=== PATIENT | female | born 1995 | race Caucasian/White ===

== ENCOUNTER 2016-06-26 17:12 | Emergency (ER) | payer BC ==
[2016-06-26] MEDS ORDERED: methylPREDNISolone 125 MG* 2 ML VIAL ONE (19:58)
[2016-06-26] MEDS ORDERED: methylPREDNISolone 125 MG* 2 ML VIAL IM ONE (20:01)
[2016-06-26] MEDS ORDERED: methylPREDNISolone 125 MG* 2 ML VIAL IV ONE (20:18)
[2016-06-26] MEDS ORDERED: diPHENhydraMINE IV* 50 MG/ML 1 ml VIAL (BENADRYL) IV ONE (20:38)
[2016-06-26] MEDS ORDERED: ALPRAZolam TAB* 0.25 MG PO ONE (20:38)
[2016-06-26] MEDS ORDERED: diPHENhydraMINE PO* 25 MG ONE (20:39)
[2016-06-26] MEDS ORDERED: diPHENhydraMINE PO* 25 MG PO ONE (20:41)
[2016-06-26] MEDS ORDERED: Famotidine TAB* 20 MG ONE (21:40)
[2016-06-26] MEDS ORDERED: Famotidine TAB* 20 MG PO ONE (21:42)
[2016-06-26 22:52] VITALS: BP 130/87
--- NOTE | 2016-06-27 03:28 | ED ---
Norma Gardner Claudia, scribed for Demetri Holland on 06/26/16 at 6 . Allergic Reaction/Systemic - HPI Summary HPI Summary: 21 year old female presents to the ED with allergic reaction. Pt notes PMHx of tree nut allergy. Pt notes Sx began at 4:30 todya and at 4:40 she took 2 Benadryl tablets and 1 Zyrtec. Pt notes she has difficulty breathing which has begun to resolve upon arrival to ED. Pt thinks the Benadryl somewhat alleviated her Sx. - History of Current Complaint Chief Complaint: EDAllergicReaction Time Seen by Provider: 06/26/16 19:48 Hx Obtained From: Patient Hx Last Menstrual Period: 08/10/15 Onset/Duration: Sudden Onset, Started hours ago Timing: Constant Pain Intensity: 0 Pain Scale Used: 0-10 Numeric Character: Hives Associated Signs And Symptoms: Positive: Abdominal Pain, Difficulty Breathing. Negative: Chest Pain, Cough Wheezing - Related Hx Possible Reaction To: Other: - tree nuts - Allergies/Home Medications Allergies/Adverse Reactions: Allergies Allergy/AdvReac Type Severity Reaction Status Date / Time Tree Nuts Allergy Difficulty Verified 09/09/15 18:59 Breathing PMH/Surg Hx/FS Hx/Imm Hx Previously Healthy: Yes Respiratory History: Reports: Hx Asthma, Hx Seasonal Allergies Denies: Hx Chronic Bronchitis, Hx Chronic Obstructive Pulmonary Disease (COPD ), Hx Cystic Fibrosis, Hx Lung Cancer, Hx Pleural Effusion, Hx Pneumonia, Hx Pulmonary Edema, Hx Pulmonary Embolism, Hx Sleep Apnea, Other Respiratory Problems/Disorders Musculoskeletal History: Reports: Hx Back Problems - muscle spasms, Hx Bursitis - left hip Denies: Hx Arthritis, Hx Congenital Bone Abnormalities, Hx Fibromyalgia, Hx Gout, Hx Orthopedic Injury, Hx Osteoporosis, Hx Scoliosis, Hx Tendonitis, Other Musculoskeletal History Sensory History: Reports: Hx Contacts or Glasses Denies: Hx Cataracts, Hx Eye Injury, Hx Eye Prosthesis, Hx Glaucoma, Hx Legally Blind, Hx Macular Degeneration, Hx Vision Problem, Hx Deafness, Hx Hearing Aid, Hx Hearing Problem, Other Sensory Impairments Opthamlomology History: Reports: Hx Contacts or Glasses Denies: Hx Cataracts, Hx Eye Injury, Hx Eye Prosthesis, Hx Glaucoma, Hx Legally Blind, Hx Macular Degeneration, Hx Vision Problem, Other Sensory Impairments Psychiatric History: Reports: Hx Anxiety, Hx Depression, Hx Community Mental Health Tx Denies: Hx Attention Deficit Hyperactivity Disorder, Hx Eating Disorder, Hx Panic Disorder, Hx Post Traumatic Stress Disorder, Hx Inpatient Treatment, Hx Schizophrenia, Hx Bipolar Disorder, Hx Suicide Attempt, Hx of Violent Episodes Against Others, Hx Substance Abuse, Other Psychiatric Issues/Disorders - Surgical History Surgery Procedure, Year, and Place: adenoidectomy - Immunization History Date of Tetanus Vaccine: in last 5 years Infectious Disease History: No Infectious Disease History: Denies: Hx Clostridium Difficile, Hx Hepatitis, Hx Human Immunodeficiency Virus (HIV), Hx of Known/Suspected MRSA, Hx Shingles, Hx Tuberculosis, Hx Known/ Suspected VRE, Hx Known/Suspected VRSA, History Other Infectious Disease, Traveled Outside the [place] in Last 30 Days - Family History Known Family History: Positive: None Negative: Hypertension, Diabetes Family History: R & n/C - Social History Occupation: Employed Full-time Lives: With Family Alcohol Use: Occasionally Hx Substance Use: No Substance Use Type: Reports: None Hx Tobacco Use: No Smoking Status (MU): Never Smoked Tobacco Review of Systems Constitutional: Negative Eyes: Negative ENT: Negative Cardiovascular: Negative Negative: Chest Pain Positive: Other - difficulty breathing . Negative: Cough Positive: Abdominal Pain Genitourinary: Negative Musculoskeletal: Negative Positive: Rash Neurological: Negative Psychological: Normal All Other Systems Reviewed And Are Negative: Yes Physical Exam Triage Information Reviewed: Yes Vital Signs On Initial Exam: Initial Vitals Temp Pulse Resp BP Pulse Ox 98.6 F 111 20 134/87 100 06/26/16 17:14 06/26/16 17:14 06/26/16 17:14 06/26/16 17:14 06/26/16 17:14 Vital Signs Reviewed: Yes Appearance: Positive: Well-Appearing, No Pain Distress Skin: Positive: Warm, Skin Color Reflects Adequate Perfusion, Dry, Other - facial rash Head/Face: Positive: Normal Head/Face Inspection Eyes: Positive: EOMI, MANUEL ENT: Positive: Normal ENT inspection Neck: Positive: Supple, Nontender Respiratory/Lung Sounds: Positive: Clear to Auscultation, Breath Sounds Present Cardiovascular: Positive: RRR, Pulses are Symmetrical in both Upper and Lower Extremities Abdomen Description: Positive: Nontender, Soft Musculoskeletal: Positive: Normal, Strength/ROM Intact Neurological: Positive: Normal, Sensory/Motor Intact, Alert, Oriented to Person Place, Time Diagnostics - Vital Signs Vital Signs Temp Pulse Resp BP Pulse Ox 06/26/16 18:59 98.6 F 87 20 125/74 100 06/26/16 17:59 98.6 F 113 16 118/70 100 06/26/16 17:14 98.6 F 111 20 134/87 100 - Laboratory Lab Statement: Any lab studies that have been ordered have been reviewed, and results considered in the medical decision making process. Re-Evaluation - Re-Evaluation 1 Re-Evaluation Time: 20:47 Comment: pt has a new rash to her hands biltaerally and more benadryl is pescribed Allergic Reaction Course/Dx - Course Assessment/Plan: AFTER OBSERVATION THE PT IS AGREEABLE WITH D/C HOME AND F/O - Diagnoses Provider Diagnoses: Allergic reaction Discharge - Discharge Plan Condition: Stable Disposition: HOME Prescriptions: Methylprednisolone [Medrol Dosepak 4 MG*] 0 mg PO .SEE PEPE INSTRUCTION #1 tab Patient Education Materials: General Allergic Reaction (ED) [facility] - 3 Days The documentation as recorded by the Norma singleton Claudia accurately reflects the service I personally performed and the decisions made by , Demetri Holland.
== END 2016-06-26 22:47 | disposition home or self-care (01) ==
LOC: ED 17:12
DX: T78.40XA Allergy, unspecified, initial encounter (principal); R10.9 Unspecified abdominal pain; R06.02 Shortness of breath; R21 Rash and other nonspecific skin eruption; Z91.018 Allergy to other foods; X58.XXXA Exposure to other specified factors, initial encounter
CPT/HCPCS: 96374; 96375; 99283; A9270-GY; J2930

== ENCOUNTER 2016-07-19 16:20 | Emergency (ER) | payer BC ==
[2016-07-19 16:57] VITALS: BP 129/72
--- NOTE | 2016-07-19 17:23 | UC ---
Upper Extremity HPI - HPI Summary HPI Summary: Woke up with L wrist pain 5 days ago. Denies recent or remote injury (except for mild sprain 2 years ago). Pain worse with flex/extension, pain on radial side of wrist. - History of Current Complaint Chief Complaint: UCUpperExtremity Stated Complaint: WRIST INJURY Time Seen by Provider: 07/19/16 17:07 Hx Obtained From: Patient Hx Last Menstrual Period: 07/18/16 ?: No Onset/Duration: Gradual Onset, Lasting Days Severity Initially: Mild Severity Currently: Mild Character: Stiffness Aggravating Factor(s): Movement, Flexion, Extension Alleviating Factor(s): Nothing Related History: Dominant Hand Right - Allergies/Home Medications Allergies/Adverse Reactions: Allergies Allergy/AdvReac Type Severity Reaction Status Date / Time Tree Nuts Allergy Difficulty Verified 07/19/16 16:44 Breathing Home Medications: Home Medications Antihistamine 1 tab 07/19/16 [History] Drospirenone-Ethinyl Estradiol [Vestura 3-0.02 mg] 1 tab PO 07/19/16 [History] Gabapentin CAP(*) [Neurontin 300 CAP(*)] 600 mg PO BID 07/19/16 [History Confirmed 07/19/16] diPHENhydraMINE PO* [Benadryl PO 25 MG TAB*] 25 mg PO Q6H PRN 07/19/16 [History Confirmed 07/19/16] predniSONE TAB* [Deltasone TAB*] 6 tab DAILY 07/19/16 [History Confirmed ] PMH/Surg Hx/FS Hx/Imm Hx Respiratory History Of: Reports: Asthma Denies: COPD, Pneumonia, Pulmonary Embolism Psychological History Of: Reports: Anxiety, Depression Denies: Bipolar Disorder, Schizophrenia Cancer History Of: Denies: Lung Cancer - Surgical History Surgical History: Yes Surgery Procedure, Year, and Place: adenoidectomy - Family History Known Family History: Positive: None Negative: Hypertension, Diabetes Family History: R & n/C - Social History Occupation: Employed Full-time Alcohol Use: Rare Substance Use Type: None Smoking Status (MU): Never Smoked Tobacco - Immunization History Most Recent Influenza Vaccination: N/A Most Recent Tetanus Shot: N/A Most Recent Pneumonia Vaccination: N/A Review of Systems Constitutional: Negative Skin: Negative Eyes: Negative ENT: Negative Respiratory: Negative Cardiovascular: Negative Gastrointestinal: Negative Genitourinary: Negative Motor: Negative Neurovascular: Negative Musculoskeletal: Other: - L wrist pain Neurological: Negative Psychological: Negative All Other Systems Reviewed And Are Negative: Yes Physical Exam Triage Information Reviewed: Yes Appearance: Well-Appearing, No Pain Distress, Well-Nourished Vital Signs: Initial Vital Signs Temp 98.6 F 07/19/16 16:50 Pulse 70 07/19/16 16:50 Resp 18 07/19/16 16:50 BP 129/72 07/19/16 16:50 Pulse Ox 100 07/19/16 16:50 Vital Signs Reviewed: Yes Eye Exam: Normal Eyes: Positive: Conjunctiva Clear ENT Exam: Normal ENT: Positive: Normal ENT inspection, Hearing grossly normal, Pharynx normal, TMs normal Dental Exam: Normal Neck exam: Normal Neck: Positive: Supple, Nontender, No Lymphadenopathy Respiratory Exam: Normal Respiratory: Positive: Chest non-tender, Lungs clear, Normal breath sounds, No respiratory distress, No accessory muscle use Cardiovascular Exam: Normal Cardiovascular: Positive: RRR, No Murmur Musculoskeletal Exam: Other - no bony tenderness in L wrist, Dillon maneuver positive, pain also over dorsal aspect of radial wrist Musculoskeletal: Positive: Strength Intact, ROM Intact Neurological Exam: Normal Neurological: Positive: Alert Psychological Exam: Normal Skin Exam: Normal Upper Extremity Course/Dx - Differential Dx/Diagnosis Provider Diagnoses: L wrist pain. elevated blood pressure due to discomfort Discharge - Discharge Plan Condition: Stable Disposition: HOME Patient Education Materials: Arthralgia (ED) Referrals: Ernesto Coy MD [Medical Doctor] - Additional Instructions: As we discussed, your pain may be from a simple tendon inflammation -- this can resolve with rest alone, but if it doesn't you may benefit from a steroid injection.
== END 2016-07-19 17:30 | disposition home or self-care (01) ==
LOC: UCEAST 16:20
DX: M25.532 Pain in left wrist (principal); R03.0 Elevated blood-pressure reading, without diagnosis of hypertension
CPT/HCPCS: 99212; G0463

== ENCOUNTER 2017-01-17 21:14 | Emergency (ER) | payer BC ==
[2017-01-17] MEDS ORDERED: Famotidine TAB* 20 MG PO ONE (21:37)
--- NOTE | 2017-01-17 21:43 | ED ---
Allergic Reaction/Systemic - HPI Summary HPI Summary: Patient is an otherwise healthy 21 yo F who presents to the ED with allergic reaction. She was seen at and sent here. She is allergic to tree nuts, but does not think she had any. She was at at [facility] earlier and the symptoms developed 1 hour after eating. She arrives to the with diffuse hives and rapid heart rate. Denies difficulty breathing or swallowing. The providers immediately sent her to the ED for further evaluation after given her 50mg benadryl and 60mg prednisone PO. She has a epi pen which she carries always, but has not needed to use it. VS stable on arrival except for increased heart rate at 110. She has had this reaction several times, most recently seen in Jun this year. She was given benadryl, pepcid and prednisone all through IV with relief of symptoms. She denies SOB. After the Benadryl, she is now stating she feels very tired. - History of Current Complaint Chief Complaint: EDAllergicReaction Time Seen by Provider: 01/17/17 21:29 Hx Obtained From: Patient Hx Last Menstrual Period: 07/18/16 Onset/Duration: Sudden Onset Timing: Constant Severity Initially: Mild Severity Currently: Mild Pain Intensity: 0 Pain Scale Used: 0-10 Numeric Character: Swelling, Pruritus Alleviating Factor(s): Antihistamines, Nothing - steroids Associated Signs And Symptoms: Positive: Negative - Related Hx Possible Reaction To: Food - Allergies/Home Medications Allergies/Adverse Reactions: Allergies Allergy/AdvReac Type Severity Reaction Status Date / Time Tree Nuts Allergy Difficulty Verified 01/17/17 21:21 Breathing PMH/Surg Hx/FS Hx/Imm Hx Previously Healthy: Yes Respiratory History: Reports: Hx Asthma, Hx Seasonal Allergies Denies: Hx Chronic Bronchitis, Hx Chronic Obstructive Pulmonary Disease (COPD ), Hx Cystic Fibrosis, Hx Lung Cancer, Hx Pleural Effusion, Hx Pneumonia, Hx Pulmonary Edema, Hx Pulmonary Embolism, Hx Sleep Apnea, Other Respiratory Problems/Disorders Musculoskeletal History: Reports: Hx Back Problems - muscle spasms, Hx Bursitis - left hip Denies: Hx Arthritis, Hx Congenital Bone Abnormalities, Hx Fibromyalgia, Hx Gout, Hx Orthopedic Injury, Hx Osteoporosis, Hx Scoliosis, Hx Tendonitis, Other Musculoskeletal History Sensory History: Reports: Hx Contacts or Glasses Denies: Hx Cataracts, Hx Eye Injury, Hx Eye Prosthesis, Hx Glaucoma, Hx Legally Blind, Hx Macular Degeneration, Hx Vision Problem, Hx Deafness, Hx Hearing Aid, Hx Hearing Problem, Other Sensory Impairments Opthamlomology History: Reports: Hx Contacts or Glasses Denies: Hx Cataracts, Hx Eye Injury, Hx Eye Prosthesis, Hx Glaucoma, Hx Legally Blind, Hx Macular Degeneration, Hx Vision Problem, Other Sensory Impairments Psychiatric History: Reports: Hx Anxiety, Hx Depression, Hx Community Mental Health Tx Denies: Hx Attention Deficit Hyperactivity Disorder, Hx Eating Disorder, Hx Panic Disorder, Hx Post Traumatic Stress Disorder, Hx Inpatient Treatment, Hx Schizophrenia, Hx Bipolar Disorder, Hx Suicide Attempt, Hx of Violent Episodes Against Others, Hx Substance Abuse, Other Psychiatric Issues/Disorders - Surgical History Surgery Procedure, Year, and Place: adenoidectomy - Immunization History Date of Tetanus Vaccine: in last 5 years Hx Pertussis Vaccination: No Immunizations Up to Date: Unable to Obtain/Confirm Infectious Disease History: No Infectious Disease History: Denies: Hx Clostridium Difficile, Hx Hepatitis, Hx Human Immunodeficiency Virus (HIV), Hx of Known/Suspected MRSA, Hx Shingles, Hx Tuberculosis, Hx Known/ Suspected VRE, Hx Known/Suspected VRSA, History Other Infectious Disease, Traveled Outside the [place] in Last 30 Days - Family History Known Family History: Positive: None Negative: Hypertension, Diabetes Family History: R & n/C - Social History Occupation: Student Lives: Dormitory/Roommates Alcohol Use: Rare Hx Substance Use: No Substance Use Type: Reports: None Hx Tobacco Use: No Smoking Status (MU): Never Smoked Tobacco Review of Systems Constitutional: Negative Negative: Fever, Chills, Fatigue Eyes: Negative Negative: Blurred Vision, Drainage Negative: Sore Throat, Ear Ache, Nasal Discharge Positive: Palpitations - feeling increase HR and increased rate of breathing. Negative: Chest Pain Negative: Shortness Of Breath, Cough Positive: no symptoms reported, see HPI Positive: Other - diffuse hives Neurological: Negative All Other Systems Reviewed And Are Negative: Yes Physical Exam Triage Information Reviewed: Yes Vital Signs On Initial Exam: Initial Vitals Temp Pulse Resp BP Pulse Ox 99.5 F 110 20 117/69 100 01/17/17 21:15 01/17/17 21:15 01/17/17 21:15 01/17/17 21:15 01/17/17 21:15 Vital Signs Reviewed: Yes Appearance: Positive: Well-Appearing, Well-Nourished - no signs of distress Head/Face: Positive: Normal Head/Face Inspection Eyes: Positive: EOMI, MANUEL, Conjunctiva Clear ENT: Positive: Other - pharynx patent Neck: Positive: Supple, No Lymphadenopathy Respiratory/Lung Sounds: Positive: Clear to Auscultation, Breath Sounds Present , Other - lungs CTA and no decreased breath sounds or wheezing noted bilaterally Cardiovascular: Positive: RRR, Pulses are Symmetrical in both Upper and Lower Extremities Musculoskeletal: Positive: Strength/ROM Intact Neurological: Positive: Sensory/Motor Intact, Alert, Oriented to Person Place, Time, Speech Normal Psychiatric: Positive: Normal AVPU Assessment: Alert - Shayna Coma Scale Best Eye Response: 4 - Spontaneous Best Motor Response: 6 - Obeys Commands Best Verbal Response: 5 - Oriented Diagnostics - Vital Signs Vital Signs Temp Pulse Resp BP Pulse Ox 01/17/17 21:15 99.5 F 110 20 117/69 100 - Laboratory Lab Statement: Any lab studies that have been ordered have been reviewed, and results considered in the medical decision making process. Allergic Reaction Course/Dx - Course Course Of Treatment: Patient presents to ED with evaluation of possible allergic reaction. Prior to arrival, she is given benadryl 50mg, prednisone 60mg and transferred here by private car. She is given pepcid 40mg on arrival. VS stable except for elevated heart rate at 110. Otherwise stable. Denies SOB and pharynx patent. Denies difficulty swallowing. She endorses diffuse pruritis. Treatment options explained and patient agrees to be observed. HR continues to be elevated and IV placed with 1L fluids given. HR prior to discharge 98. Patient feels improved and is ready to be discharged. On second exam, pharynx patent, breathing OK and taking PO well. Feels back to baseline. Hives have dissipated. Return precautions given. - Diagnoses Differential Diagnosis/HQI/PQRI: Positive: Anaphylaxis, Local Allergic Reaction , Urticaria Provider Diagnoses: Allergic reaction Discharge - Discharge Plan Condition: Stable Disposition: HOME Patient Education Materials: General Allergic Reaction (ED) Referrals: [facility] [Primary Care Provider] - Additional Instructions: Follow up with PCP If you develop worsening respiratory symptoms, difficultly swallowing, return to the ED immediately You may take another dose of Benadryl at 2am.
[2017-01-17] MEDS ORDERED: NS 0.9% 1000 ML* 1,000 ML IV ONE (23:19)
[2017-01-18 00:33] VITALS: BP 111/77
== END 2017-01-18 00:54 | disposition home or self-care (01) ==
LOC: ED 21:14
DX: T78.40XA Allergy, unspecified, initial encounter (principal); X58.XXXA Exposure to other specified factors, initial encounter; F41.8 Other specified anxiety disorders; J45.909 Unspecified asthma, uncomplicated
CPT/HCPCS: 99283; A9270-GY

== ENCOUNTER 2017-04-13 20:17 | Emergency (ER) | payer OTHER, BC ==
[2017-04-13] MEDS ORDERED: diPHENhydraMINE LIQ* 12.5 MG/5 ML UDC PO ONE (22:11)
[2017-04-13] MEDS ORDERED: Ondansetron ODT TAB* 4 MG SL ONE (22:12)
[2017-04-13] MEDS ORDERED: Famotidine TAB* 20 MG PO ONE (22:12)
--- NOTE | 2017-04-13 22:22 | ED ---
Allergic Reaction/Systemic - HPI Summary HPI Summary: Patient presents to the ED with CC of allergic reaction. 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 Pt stated that its easier to swallow now that shes had the epi pen, also c/o throat pain. She has had these symptoms several times, but tonight is the first time she has used her epi pen. Currently on allergy medication, but denies other medications. Otherwise healthy. She states she felt jittery afterwards, but that has subsided. Epi pen administered 2 hours ago. - History of Current Complaint Chief Complaint: EDAllergicReaction Time Seen by Provider: 04/13/17 21:34 Hx Obtained From: Patient Hx Last Menstrual Period: 07/18/16 Onset/Duration: Sudden Onset Timing: Constant Severity Initially: Moderate Severity Currently: Moderate Pain Intensity: 6 Pain Scale Used: 0-10 Numeric Alleviating Factor(s): Epinephrine Associated Signs And Symptoms: Positive: Negative - Related Hx Possible Reaction To: Food - Allergies/Home Medications Allergies/Adverse Reactions: Allergies Allergy/AdvReac Type Severity Reaction Status Date / Time Tree Nuts Allergy Difficulty Verified 01/17/17 21:21 Breathing PMH/Surg Hx/FS Hx/Imm Hx Previously Healthy: Yes Respiratory History: Reports: Hx Asthma, Hx Seasonal Allergies Denies: Hx Chronic Bronchitis, Hx Chronic Obstructive Pulmonary Disease (COPD ), Hx Cystic Fibrosis, Hx Lung Cancer, Hx Pleural Effusion, Hx Pneumonia, Hx Pulmonary Edema, Hx Pulmonary Embolism, Hx Sleep Apnea, Other Respiratory Problems/Disorders Musculoskeletal History: Reports: Hx Back Problems - muscle spasms, Hx Bursitis - left hip Denies: Hx Arthritis, Hx Congenital Bone Abnormalities, Hx Fibromyalgia, Hx Gout, Hx Orthopedic Injury, Hx Osteoporosis, Hx Scoliosis, Hx Tendonitis, Other Musculoskeletal History Sensory History: Reports: Hx Contacts or Glasses Denies: Hx Cataracts, Hx Eye Injury, Hx Eye Prosthesis, Hx Glaucoma, Hx Legally Blind, Hx Macular Degeneration, Hx Vision Problem, Hx Deafness, Hx Hearing Aid, Hx Hearing Problem, Other Sensory Impairments Opthamlomology History: Reports: Hx Contacts or Glasses Denies: Hx Cataracts, Hx Eye Injury, Hx Eye Prosthesis, Hx Glaucoma, Hx Legally Blind, Hx Macular Degeneration, Hx Vision Problem, Other Sensory Impairments Psychiatric History: Reports: Hx Anxiety, Hx Depression, Hx Community Mental Health Tx Denies: Hx Attention Deficit Hyperactivity Disorder, Hx Eating Disorder, Hx Panic Disorder, Hx Post Traumatic Stress Disorder, Hx Inpatient Treatment, Hx Schizophrenia, Hx Bipolar Disorder, Hx Suicide Attempt, Hx of Violent Episodes Against Others, Hx Substance Abuse, Other Psychiatric Issues/Disorders - Surgical History Surgery Procedure, Year, and Place: adenoidectomy - Immunization History Date of Tetanus Vaccine: in last 5 years Hx Pertussis Vaccination: No Immunizations Up to Date: Unable to Obtain/Confirm Infectious Disease History: No Infectious Disease History: Denies: Hx Clostridium Difficile, Hx Hepatitis, Hx Human Immunodeficiency Virus (HIV), Hx of Known/Suspected MRSA, Hx Shingles, Hx Tuberculosis, Hx Known/ Suspected VRE, Hx Known/Suspected VRSA, History Other Infectious Disease, Traveled Outside the [place] in Last 30 Days - Family History Known Family History: Positive: None Negative: Hypertension, Diabetes Family History: R & n/C - Social History Occupation: Employed Full-time Lives: Dormitory/Roommates Alcohol Use: Rare Hx Substance Use: No Substance Use Type: Reports: None Hx Tobacco Use: No Smoking Status (MU): Never Smoked Tobacco Review of Systems Constitutional: Negative Negative: Fever, Chills, Fatigue Eyes: Negative Positive: Sore Throat - scratchy throat Cardiovascular: Negative Respiratory: Negative Positive: no symptoms reported, see HPI Musculoskeletal: Negative Positive: Rash - diffuse itching with mild hives Neurological: Negative All Other Systems Reviewed And Are Negative: Yes Physical Exam Triage Information Reviewed: Yes Vital Signs On Initial Exam: Initial Vitals Temp Pulse Resp BP Pulse Ox 97.9 F 125 20 125/82 100 04/13/17 20:24 04/13/17 20:24 04/13/17 20:24 04/13/17 20:24 04/13/17 20:24 Vital Signs Reviewed: Yes Appearance: Positive: Well-Appearing, Well-Nourished Skin: Positive: Warm, Skin Color Reflects Adequate Perfusion, Other - hives to the upper chest - mild Head/Face: Positive: Normal Head/Face Inspection Eyes: Positive: EOMI, MANUEL, Conjunctiva Clear ENT: Positive: Pharynx normal. Negative: Pharyngeal erythema, Tonsillar swelling, Tonsillar exudate, Muffled voice, Hoarse voice Neck: Positive: Supple, No Lymphadenopathy Respiratory/Lung Sounds: Positive: Clear to Auscultation, Breath Sounds Present Cardiovascular: Positive: RRR, Pulses are Symmetrical in both Upper and Lower Extremities Musculoskeletal: Positive: Normal, Strength/ROM Intact Neurological: Positive: Speech Normal Psychiatric: Positive: Normal, Affect/Mood Appropriate - Shayna Coma Scale Coma Scale Total: 15 Diagnostics - Vital Signs Vital Signs Temp Pulse Resp BP Pulse Ox 04/13/17 20:24 97.9 F 125 20 125/82 100 - Laboratory Lab Statement: Any lab studies that have been ordered have been reviewed, and results considered in the medical decision making process. Allergic Reaction Course/Dx - Course Course Of Treatment: Patient presents to the ED after administering EPI at work after a possible cross contamination with tree nuts to which she is allergic. She endorses some scratchy throat, but denies difficulty breathing and states she is able to swallow well without compromise. Rash to the chest which is mild hives - improved since arrival. Benadryl 25 liquid, famotidine 20mg PO given in the ED. PO challenge. She is observed for 1.5 hours. Feels much improved. Patient has benadryl at home. Safe ride home. - Diagnoses Provider Diagnoses: Allergic reaction Discharge - Discharge Plan Condition: Stable Disposition: HOME Patient Education Materials: Epinephrine (By injection), Food Allergy (ED) [facility] [Primary Care Provider] - Additional Instructions: Please follow up as needed Benadryl may be taken again in the morning if symptoms persist If you develop worsening SOB or scratchy throat - return to the ED
[2017-04-13 23:34] VITALS: BP 121/68
== END 2017-04-13 23:56 | disposition home or self-care (01) ==
LOC: ED 20:17
DX: T78.40XA Allergy, unspecified, initial encounter (principal); X58.XXXA Exposure to other specified factors, initial encounter; Y92.9 Unspecified place or not applicable; J45.909 Unspecified asthma, uncomplicated
CPT/HCPCS: 99282; A9270-GY

== ENCOUNTER 2017-12-19 20:41 | Emergency (ER) | payer OTHER, BC ==
[2017-12-19 23:29] LABS: Urine Appearance Cloudy; Urine Blood Negative (Negative); Urine Color Yellow; Urine Ketones Negative (Negative); Urine Protein Negative (Negative); Urine Red Blood Cell Trace(0-2/hpf) (Absent); Urine Specific Gravity 1.009 (1.010-1.030); Urine Urobilinogen Negative (Negative); Urine White Blood Cell Trace(0-5/hpf) (Absent)
[2017-12-20 00:03] LABS: ABS Basophils 0.2 10^3/ul (0-0.2); ABS Eosinophils 0.1 10^3/ul (0-0.6); ABS Lymphocytes 4.4 10^3/ul (1.0-4.8); ABS Monocytes 0.7 10^3/ul (0-0.8); ABS Neutrophils 7.3 10^3/ul (1.5-7.7); ABS Nucleated RBC 0 10^3/ul; Eosinophil % 0.5 % (0-6); Hematocrit 37 % (35-47); Hemoglobin 12.2 g/dl (12.0-16.0); Lymphocyte % 34.9 % (25-47); Mean Corpuscular HGB Conc 33 g/dl (31-36); Mean Corpuscular Hemoglobin 27 pg (27-31); Mean Corpuscular Volume 82 fL (80-97); Mean Platelet Volume 7.1 um3 (7.4-10.4); Nucleated Red Blood Cells % 0.1; Platelet Count 380 10^3/ul (150-450); Red Blood Count 4.46 10^6/ul (4.00-5.40); Red Cell Distribution Width 14 % (10.5-15); White Blood Count 12.6 10^3/ul (3.5-10.8)
[2017-12-20 00:21] LABS: EGFR Non-African American 100.4 (>60)
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
[2017-12-20] MEDS ORDERED: Lidocain 1% EPI 1:100,000 * 30 ML MDV INJ ONE (02:56)
[2017-12-20] MEDS ORDERED: Lidocaine 2% EPI 1:200000 MPF*10-20 ML VIAL ONE (03:32)
[2017-12-20 04:20] VITALS: BP 136/69
== END 2017-12-20 04:00 | disposition home or self-care (01) ==
LOC: ED 20:41
DX: S71.111A Laceration without foreign body, right thigh, initial encounter (principal); X78.8XXA Intentional self-harm by other sharp object, initial encounter; Y93.9 Activity, unspecified; Y92.9 Unspecified place or not applicable; F60.3 Borderline personality disorder; R42 Dizziness and giddiness; Z91.018 Allergy to other foods
CPT/HCPCS: 12002; 36415; 80053; 80307; 80320; 80329; 81003; 81015; 84443; 85025; 87086; 99285; G0480

== ENCOUNTER 2017-12-24 21:36 | Inpatient (IN) | payer BC, OTHER ==
--- NOTE | 2017-12-24 21:58 | ED ---
Psychiatric Complaint - HPI Summary HPI Summary: Pt is a 22 year old female who arrived to ED [facility] at 2141. EMS informed us that there was a third republican call placed because she was threatening to harm herself. Pt was here on 12/19 to get a laceration on her R thigh stitched, and had a mental health evaluation while she was here. Physician spoke with her therapist when she was here last, who said she is not suicidal. She has multiple superficial lacerations around the large laceration on her R thigh. - History Of Current Complaint Chief Complaint: EDMentalHealth Time Seen by Provider: 12/24/17 21:39 Hx Last Menstrual Period: 09/24/17 - Allergies/Home Medications Allergies/Adverse Reactions: Allergies Allergy/AdvReac Type Severity Reaction Status Date / Time Tree Nuts Allergy Difficulty Verified 12/20/17 03:35 Breathing PMH/Surg Hx/FS Hx/Imm Hx Endocrine/Hematology History: Denies: Hx Diabetes, Hx Thyroid Disease Cardiovascular History: Denies: Hx Hypertension Respiratory History: Reports: Hx Asthma, Hx Seasonal Allergies Denies: Hx Chronic Bronchitis, Hx Chronic Obstructive Pulmonary Disease (COPD ), Hx Cystic Fibrosis, Hx Lung Cancer, Hx Pleural Effusion, Hx Pneumonia, Hx Pulmonary Edema, Hx Pulmonary Embolism, Hx Sleep Apnea, Other Respiratory Problems/Disorders GI History: Denies: Hx Ulcer Musculoskeletal History: Reports: Hx Back Problems - muscle spasms, Hx Bursitis - left hip Denies: Hx Arthritis, Hx Congenital Bone Abnormalities, Hx Fibromyalgia, Hx Gout, Hx Orthopedic Injury, Hx Osteoporosis, Hx Scoliosis, Hx Tendonitis, Other Musculoskeletal History Sensory History: Reports: Hx Contacts or Glasses Denies: Hx Cataracts, Hx Eye Injury, Hx Eye Prosthesis, Hx Glaucoma, Hx Legally Blind, Hx Macular Degeneration, Hx Vision Problem, Hx Deafness, Hx Hearing Aid, Hx Hearing Problem, Other Sensory Impairments Opthamlomology History: Reports: Hx Contacts or Glasses Denies: Hx Cataracts, Hx Eye Injury, Hx Eye Prosthesis, Hx Glaucoma, Hx Legally Blind, Hx Macular Degeneration, Hx Vision Problem, Other Sensory Impairments Psychiatric History: Reports: Hx Anxiety, Hx Depression, Hx Community Mental Health Tx Denies: Hx Attention Deficit Hyperactivity Disorder, Hx Eating Disorder, Hx Panic Disorder, Hx Post Traumatic Stress Disorder, Hx Inpatient Treatment, Hx Schizophrenia, Hx Bipolar Disorder, Hx Suicide Attempt, Hx of Violent Episodes Against Others, Hx Substance Abuse, Other Psychiatric Issues/Disorders - Surgical History Surgery Procedure, Year, and Place: adenoidectomy - Immunization History Date of Tetanus Vaccine: in last 5 years Infectious Disease History: Denies: Hx Clostridium Difficile, Hx Hepatitis, Hx Human Immunodeficiency Virus (HIV), Hx of Known/Suspected MRSA, Hx Shingles, Hx Tuberculosis, Hx Known/ Suspected VRE, Hx Known/Suspected VRSA, History Other Infectious Disease - Family History Known Family History: Negative: Hypertension, Diabetes - Social History Alcohol Use: Occasionally Hx Substance Use: No Substance Use Type: Reports: None Hx Tobacco Use: No Smoking Status (MU): Never Smoked Tobacco Review of Systems Negative: Abdominal Pain, Vomiting Musculoskeletal: Negative Positive: Other - lacerations as noted in PE Negative: Headache, Weakness Positive: Depressed All Other Systems Reviewed And Are Negative: Yes Physical Exam - Summary Physical Exam Summary: General: This is a well-developed, well- nourished young woman lying on the stretcher in no apparent distress. The patient does not appear ill or toxic. Neck: No obvious swellings. Lungs: There are no signs of respiratory distress. Coronary: Peripheral perfusion is good. Abdomen: The abdomen appears normal and is nondistended. Genitourinary: Deferred Back: Good range of motion is observed. Extremities: Good range of motion was observed in all 4 extremities. There is a sutured laceration to the right thigh, with some newer more superficial abrasions nearby. Neurologic: The patient is awake and alert, speech is fluent in conversation is appropriate. Psychiatric: The patients affect is felt to be somewhat depressed. There is no sign of any hallucinations or delusions, or any other signs of psychosis. Course/Dx - Differential Dx/Clinical Impression Provider Diagnosis: Major depressive disorder, Suicidal ideation, Deliberate self-cutting Discharge - Sign-Out/Discharge Documenting (check all that apply): Patient Departure - Discharge Plan Condition: Guarded Disposition: [place]ATR[place] [place] Billing Disposition and Condition Condition: GUARDED Disposition: Psychiatric Facility [facility] [place] - Attestation Statements Document Initiated by Scribe: Yes Documenting Scribe: Saima Chau Provider For Whom Scribe is Documenting (Include Credential): Phani Muñiz MD. Scribe Attestation: Saima Gardner, scribed for Phani Muñiz MD. on 12/26/17 at 1841. Scribe Documentation Reviewed: Yes Provider Attestation: The documentation as recorded by the scribe, Saima Chau accurately reflects the service I personally performed and the decisions made by me, Phani Muñiz MD.
[2017-12-25] MEDS ORDERED: Zolpidem TAB* 10 MG PO ONE (01:00)
[2017-12-25] MEDS ORDERED: diPHENhydraMINE PO* 50 MG PO PRN (11:13)
[2017-12-25] MEDS ORDERED: DROSPIRENONE PO SCH (12:00)
[2017-12-25] MEDS ORDERED: ETHINYL ESTRADIOL PO SCH (12:00)
[2017-12-25] MEDS: Dicyclomine CAP* 10 MG PO SCH ×2 (12:22→17:04)
[2017-12-25] MEDS: Cetirizine* 10 MG TAB PO SCH (12:25)
[2017-12-25] MEDS ORDERED: Zolpidem TAB* 10 MG PO PRN (15:31)
[2017-12-25] MEDS ORDERED: Ibuprofen TAB* 400 MG PO PRN (15:31)
[2017-12-25] MEDS: ALPRAZolam TAB* 0.5 MG PO PRN (16:06)
[2017-12-25] MEDS: Gabapentin CAP(*) 300 MG PO SCH ×2 (16:08→20:50)
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
[2017-12-26] MEDS: Cetirizine* 10 MG TAB PO SCH (07:41)
[2017-12-26] MEDS: Gabapentin CAP(*) 300 MG PO SCH (07:41)
[2017-12-26] MEDS: Dicyclomine CAP* 10 MG PO SCH (07:41)
[2017-12-26] MEDS: ALPRAZolam TAB* 0.5 MG PO PRN (07:43)
[2017-12-26] MEDS: DROSPIRENONE PO SCH ×2 (07:44→10:51)
[2017-12-26] MEDS: ETHINYL ESTRADIOL PO SCH ×2 (07:44→10:51)
[2017-12-26 08:00] VITALS: BP 121/61
--- NOTE | 2017-12-29 21:38 | DS ---
CC: Shante Baird; Jasmina Castillo DISCHARGE SUMMARY: DATE OF ADMISSION: 12/24/17. DATE OF DISCHARGE: 12/26/17. PROVIDER: Ade Garcia NP, in Psychiatry. SUPERVISING PHYSICIAN: Dr. Eleno Breaux. DIAGNOSES: [place] I: Generalized anxiety disorder. [place] II: Borderline personality disorder. CONDITION AT THE TIME OF DISCHARGE: Improved, psychiatrically cleared, stable, participated in group s, social with peers at times. She did well here psychiatrically. She tolerated the medications she was already taking well. She will attend outpatient therapy with Shante Baird and will see Jasmina Castillo as her client relation specialist prescriber. MENTAL STATUS EXAM AT THE TIME OF DISCHARGE: Lexus is calm, cooperative, and makes good eye contact. She is alert and oriented times three. Her grooming is good. Her speech is normal. Her thought pro cesses are logical. She is not psychotic or delusional. She denies AH, VH, SI, and HI. Her insight and judgment are good. She is willing to followup and she is urged to see her therapist. DISCHARGE INSTRUCTIONS: To patient: A. Medications: 1. Albuterol inhaler 2 puffs q.4 hours. 2. Alprazolam 0.5 mg take 1 q.6 hours as needed for anxiety. 3. Pepto-Bismol once daily p.r.n. indigestion. 4. Calcium carbonate chew which is also Tums 500 mg p.o. once daily as needed. 5. Zyrtec 10 mg tablet p.o. daily. 6. Dicyclomine 10 mg capsule before meals. 7. Benadryl 50 mg capsules p.o. q.6 hours p.r.n. allergy symptoms. 8. control Indu 28 tablet take 1 daily. 9. Gabapentin 300 mg capsules take 600 mg 3 times a day. 10. Ambien 10 mg tablets p.r.n. insomnia. B. Diet: Regular as tolerated. C. Activities: As tolerated. Lexus is a nonsmoker. There are no studies pending at the time of dis charge. D. Followup care: She has appointments with Rupinder Baird and Jasmina Castillo to follow up. E. Substance abuse. Followup is not indicated. HOSPITAL COURSE: Part A. Chief Complaint: " I am really on edge. It all came to a head. This is the first time I cut myself since May or June." The patient is a 22-year-old single white fe male with a history of borderline personality disorder, depression and anxiety, who arrives on an inv oluntary status, brought by ambulance after cutting herself severely a few nights ago and most recent ly calling her therapist, Shante Baird, who then called the police thinking that Lexus was suicidal. Lexus has been staying up all night because she had to clean related to her roommates moving in who she did not know very well. She wanted the house to be clean for them. She said she would have had help from a male roommate, but he was out helping friends in [place], [place]. Lexus got upset after tr hero to move furniture on her own, and trying not to rip out stitches that have been put in a few day s before. She called Rupinder and explained she was having a hard time and she had hurt herself again thi s time superficially. Rupinder got alarmed, thought that Lexus was suicidal even though Lexus denied it. S he states she just wanted to go to sleep and she wanted to feel better. Her stressors include being in her 7th year at [employer], school was starting soon, financial concerns such as having enoug h rent money, having a job that causes her some anxiety and wondering about her housing stability. S he has insomnia most of the time. She struggles with guilty feelings and bad feelings about herself. She has difficulty concentrating and she is not having suicidal ideation. On the other hand, she w orries significantly and has chronic anxiety. She states the anxiety is much more intense than the d epression. She is a little irritable although she is generally is pleasant and again, she has insomn ia. Part B: Psychiatric treatment was rendered. Lexus was admitted to the Adult Behavioral Unit and [facility] ed on 15-minute checks for safety. Lexus did well on the unit and went to some groups. She interacte d with some peers. She tolerated the minor med changes we made. I encouraged her to take less Xanax and to use Ambien as infrequently as possible. We did not meet with her family. We did consult jorge Baird, who felt as though Lexus was unsafe and would benefit from being in the hospital. Lexus , however, denies suicidal ideations and states she was stressed out and easily created a plan for sa manriquez which I gave her a copy for Rupinder Baird and copy to one for her records. Lexus is improved. She appears to feel less intense distress than she did upon arriving at the hospital. She is being disc harged home with followup care as I said with Rupinder Baird and Jasmina Castillo. ADE GARCIA, MAYELIN [id number]/CPS #: [id number]
== END 2017-12-26 11:34 | disposition home or self-care (01) | DRG 756 ==
LOC: ED 21:36 → BSU 22:15
PROVIDERS: ADMIT Internal Medicine; ATTEND Internal Medicine
DX: F41.1 Generalized anxiety disorder (principal); R45.851 Suicidal ideations; F60.3 Borderline personality disorder; F32.9 Major depressive disorder, single episode, unspecified; G47.00 Insomnia, unspecified; H53.149 Visual discomfort, unspecified; K58.9 Irritable bowel syndrome, unspecified; Z62.811 Personal history of psychological abuse in childhood; S71.111A Laceration without foreign body, right thigh, initial encounter; W45.8XXA Other foreign body or object entering through skin, initial encounter; J45.909 Unspecified asthma, uncomplicated; Z72.89 Other problems related to lifestyle; Z81.8 Family history of other mental and behavioral disorders; Y92.9 Unspecified place or not applicable; Z91.018 Allergy to other foods
CPT/HCPCS: 99285; A9270-GY

== ENCOUNTER 2018-01-02 13:59 | Emergency (ER) | payer BC ==
[2018-01-02] MEDS ORDERED: Haloperidol INJ IV/IM* 5 MG/ML AMP IM ONE ×2 (14:50→14:51)
[2018-01-02] MEDS ORDERED: diPHENhydraMINE IV* 50 MG/ML 1 ml VIAL (BENADRYL) IM ONE (14:50)
[2018-01-02] MEDS ORDERED: LORazepam INJ* 2 MG/ML 1 ML VIAL IM ONE (14:51)
[2018-01-02] MEDS ORDERED: chlorproMAZINE INJ* 25 MG/ML 2 ML (50 MG) ONE (15:00)
[2018-01-02] MEDS ORDERED: Haloperidol INJ IV/IM* 5 MG/ML AMP ONE (15:00)
[2018-01-02] MEDS ORDERED: LORazepam INJ* 2 MG/ML 1 ML VIAL ONE (15:00)
[2018-01-02] MEDS ORDERED: diPHENhydraMINE IV* 50 MG/ML 1 ml VIAL (BENADRYL) ONE (15:00)
[2018-01-02 16:11] LABS: ABS Basophils 0 10^3/ul (0-0.2); ABS Eosinophils 0 10^3/ul (0-0.6); ABS Lymphocytes 1.6 10^3/ul (1.0-4.8); ABS Monocytes 0.3 10^3/ul (0-0.8); ABS Neutrophils 9.2 10^3/ul (1.5-7.7); ABS Nucleated RBC 0 10^3/ul; Eosinophil % 0.1 % (0-6); Hematocrit 39 % (35-47); Hemoglobin 12.9 g/dl (12.0-16.0); Lymphocyte % 14.3 % (25-47); Mean Corpuscular HGB Conc 33 g/dl (31-36); Mean Corpuscular Hemoglobin 27 pg (27-31); Mean Corpuscular Volume 82 fL (80-97); Mean Platelet Volume 7.2 um3 (7.4-10.4); Nucleated Red Blood Cells % 0.2; Platelet Count 370 10^3/ul (150-450); Red Blood Count 4.71 10^6/ul (4.00-5.40); Red Cell Distribution Width 14 % (10.5-15); White Blood Count 11.1 10^3/ul (3.5-10.8)
[2018-01-02 16:27] LABS: EGFR Non-African American 107.2 (>60)
--- NOTE | 2018-01-02 17:20 | ED ---
Substance Abuse/Use - HPI Summary HPI Summary: Patient is a 22 y/o F 941 w/ c/o possible overdose [employer]. Per EMS, she was seen at her therapist's office today, who noted that patient was becoming more and more unresponsive throughout the meeting. Therapist called EMS and was reports possible OD from alcohol in patient. In the room, patient is somnolent and has occasional episodes of aggressive behavior. She is swinging at people and kicking the wall. Patient is nauseous and vomiting as well. No other Hx was able to be gathered. - History Of Current Complaint Chief Complaint: EDMentalHealth Stated Complaint: OVERDOSE Time Seen by Provider: 01/02/18 14:31 Hx Obtained From: EMS Hx From Patient Unobtainable Due To: Other - patient is sleepy with occasional bouts of aggression; non-contributory Hx Last Menstrual Period: 09/24/17 Onset/Duration of Drug/ETOH Abuse: Hours - today, prior to therapist meeting Character: Other - somnolent with bouts of aggressions Associated Signs And Symptoms: Other: - aggressive behavior, somnolent Related Hx: Drug/Alcohol Last Used @ - today - Allergies/Home Medications Allergies/Adverse Reactions: Allergies Allergy/AdvReac Type Severity Reaction Status Date / Time Tree Nuts Allergy Difficulty Verified 12/20/17 03:35 Breathing PMH/Surg Hx/FS Hx/Imm Hx Endocrine/Hematology History: Denies: Hx Diabetes, Hx Thyroid Disease Cardiovascular History: Denies: Hx Hypertension Respiratory History: Reports: Hx Asthma, Hx Seasonal Allergies Denies: Hx Chronic Bronchitis, Hx Chronic Obstructive Pulmonary Disease (COPD ), Hx Cystic Fibrosis, Hx Lung Cancer, Hx Pleural Effusion, Hx Pneumonia, Hx Pulmonary Edema, Hx Pulmonary Embolism, Hx Sleep Apnea, Other Respiratory Problems/Disorders GI History: Denies: Hx Ulcer Musculoskeletal History: Reports: Hx Back Problems - muscle spasms, Hx Bursitis - left hip Denies: Hx Arthritis, Hx Congenital Bone Abnormalities, Hx Fibromyalgia, Hx Gout, Hx Orthopedic Injury, Hx Osteoporosis, Hx Scoliosis, Hx Tendonitis, Other Musculoskeletal History Sensory History: Reports: Hx Contacts or Glasses Denies: Hx Cataracts, Hx Eye Injury, Hx Eye Prosthesis, Hx Glaucoma, Hx Legally Blind, Hx Macular Degeneration, Hx Vision Problem, Hx Deafness, Hx Hearing Aid, Hx Hearing Problem, Other Sensory Impairments Opthamlomology History: Reports: Hx Contacts or Glasses Denies: Hx Cataracts, Hx Eye Injury, Hx Eye Prosthesis, Hx Glaucoma, Hx Legally Blind, Hx Macular Degeneration, Hx Vision Problem, Other Sensory Impairments Psychiatric History: Reports: Hx Anxiety, Hx Depression, Hx Community Mental Health Tx Denies: Hx Attention Deficit Hyperactivity Disorder, Hx Eating Disorder, Hx Panic Disorder, Hx Post Traumatic Stress Disorder, Hx Inpatient Treatment, Hx Schizophrenia, Hx Bipolar Disorder, Hx Suicide Attempt, Hx of Violent Episodes Against Others, Hx Substance Abuse, Other Psychiatric Issues/Disorders - Surgical History Surgery Procedure, Year, and Place: adenoidectomy - Immunization History Date of Tetanus Vaccine: in last 5 years Infectious Disease History: Unable to Obtain/Confirm Infectious Disease History: Denies: Hx Clostridium Difficile, Hx Hepatitis, Hx Human Immunodeficiency Virus (HIV), Hx of Known/Suspected MRSA, Hx Shingles, Hx Tuberculosis, Hx Known/ Suspected VRE, Hx Known/Suspected VRSA, History Other Infectious Disease, Traveled Outside the [place] in Last 30 Days - Family History Known Family History: Negative: Hypertension, Diabetes - Social History Alcohol Use: Occasionally Hx Substance Use: No Substance Use Type: Reports: None Hx Tobacco Use: No Smoking Status (MU): Never Smoked Tobacco Have You Smoked in the Last Year: No Review of Systems Negative: Fever - temp on vitals is 98 F Positive: Vomiting, Nausea Positive: Other - somnolent, possible overdose, bouts of aggressive behavior All Other Systems Reviewed And Are Negative: Yes Physical Exam - Summary Physical Exam Summary: Appearance: The patient is well-nourished in no acute distress and in no acute pain. Skin: The skin is warm and dry and skin color reflects adequate perfusion. HEENT: The head is normocephalic and atraumatic. The pupils are equal and reactive. The conjunctivae are clear and without drainage. Nares are patent and without drainage. Mouth reveals moist mucous membranes and the throat is without erythema and exudate. The external ears are intact. The ear canals are patent and without drainage. The tympanic membranes are intact. Neck: The neck is supple with full range of motion and non-tender. There are no carotid bruits. There is no neck vein distension. Respiratory: Chest is non-tender. Lungs are clear to auscultation and breath sounds are symmetrical and equal. Cardiovascular: Heart is regular rate and rhythm. There is no murmur or rub auscultated. There is no peripheral edema and pulses are symmetrical and equal. Abdomen: The abdomen is soft and non-tender. There are normal bowel sounds heard in all four quadrants and there is no organomegaly palpated. Musculoskeletal: There is no back tenderness noted. Extremities are non-tender with full range of motion. There is good capillary refill. There is no peripheral edema or calf tenderness elicited. Neurological: The patient has symmetrical motor strength in all four extremities. Cranial nerves are grossly intact. Deep tendon reflexes are symmetrical and equal in all four extremities. Triage Information Reviewed: Yes Vital Signs On Initial Exam: Initial Vitals Temp Pulse Resp BP Pulse Ox 98 F 133 20 128/80 96 01/02/18 14:02 01/02/18 14:02 01/02/18 14:02 01/02/18 14:02 01/02/18 14:02 Vital Signs Reviewed: Yes Diagnostics - Vital Signs Vital Signs Temp Pulse Resp BP Pulse Ox 01/02/18 14:02 98 F 133 20 128/80 96 - Laboratory Lab Results: Lab Results 01/02/18 01/02/18 Range/Units 15:58 15:58 WBC 11.1 H (3.5-10.8) 10^3/ul RBC 4.71 (4.00-5.40) 10^6/ul Hgb 12.9 (12.0-16.0) g/dl Hct 39 (35-47) % MCV 82 (80-97) fL MCH 27 (27-31) pg MCHC 33 (31-36) g/dl RDW 14 (10.5-15) % Plt Count 370 (150-450) 10^3/ul MPV 7.2 L (7.4-10.4) um3 Neut % (Auto) 82.5 (38-83) % Lymph % (Auto) 14.3 L (25-47) % Grainger % (Auto) 2.8 (0-7) % Eos % (Auto) 0.1 (0-6) % Baso % (Auto) 0.3 (0-2) % Absolute Neuts (auto) 9.2 H (1.5-7.7) 10^3/ul Absolute Lymphs (auto) 1.6 (1.0-4.8) 10^3/ul Absolute Monos (auto) 0.3 (0-0.8) 10^3/ul Absolute Eos (auto) 0 (0-0.6) 10^3/ul Absolute Basos (auto) 0 (0-0.2) 10^3/ul Absolute Nucleated RBC 0 10^3/ul Nucleated RBC % 0.2 Sodium 138 (135-145) mmol/L Potassium 4.1 (3.5-5.0) mmol/L Chloride 105 (101-111) mmol/L Carbon Dioxide 21 L (22-32) mmol/L Anion Gap 12 H (2-11) mmol/L BUN 11 (6-24) mg/dL Creatinine 0.68 (0.51-0.95) mg/dL Est GFR ( Amer) 129.7 (>60) Est GFR (Non-Af Amer) 107.2 (>60) BUN/Creatinine Ratio 16.2 (8-20) Glucose 86 (70-100) mg/dL Calcium 9.7 (8.6-10.3) mg/dL Total Bilirubin 0.30 (0.2-1.0) mg/dL AST 16 (13-39) U/L ALT 13 (7-52) U/L Alkaline Phosphatase 63 (34-104) U/L Total Protein 7.5 (6.4-8.9) g/dL Albumin 4.1 (3.2-5.2) g/dL Globulin 3.4 (2-4) g/dL Albumin/Globulin Ratio 1.2 (1-3) TSH 0.26 L (0.34-5.60) mcIU/mL Beta HCG, Quant < 0.60 mIU/mL Salicylates < 2.50 (<30) mg/dL Acetaminophen < 15 mcg/mL Serum Alcohol 146 H (<10) mg/dL Result Diagrams: 01/02/18 15:58 01/02/18 15:58 Lab Statement: Any lab studies that have been ordered have been reviewed, and results considered in the medical decision making process. Re-Evaluation - Re-Evaluation First Eval Re-Evaluation Time: 17:57 Comment: Patient is alert and oriented x3. She is medically clear for a MHE. Course/Dx - Diagnoses Provider Diagnoses: Alcohol intoxication Discharge - Sign-Out/Discharge Documenting (check all that apply): Sign-Out Patient Signing out patient TO: Phani Muñiz Receiving patient FROM: Phani Paz - Discharge Plan Referrals: No Primary Care Phys,NOPCP [Primary Care Provider] - - Attestation Statements Document Initiated by Scribe: Yes Documenting Scribe: Vamshi Fernando Provider For Whom Scribe is Documenting (Include Credential): Phani Paz MD Scribe Attestation: IVamshi, scribed for Phani Paz MD on 01/02/18 at 1901.
[2018-01-02 20:08] LABS: Urine Appearance Clear; Urine Blood Negative (Negative); Urine Color Yellow; Urine Ketones Negative (Negative); Urine Protein Negative (Negative); Urine Red Blood Cell 1+(3-5/hpf) (Absent); Urine Specific Gravity 1.005 (1.010-1.030); Urine Urobilinogen Negative (Negative); Urine White Blood Cell Trace(0-5/hpf) (Absent)
[2018-01-03] MEDS ORDERED: LORazepam TAB(*) 1 MG PO ONE (04:55)
--- NOTE | 2018-01-03 05:56 | ED ---
Progress - Progress Note Progress Note: Patient is a sign out from Dr. Paz to Dr. Muñiz upon provider shift change pending mental health evaluation. - Consult/PCP Time Called: 18:11 Re-Evaluation - Re-Evaluation First Eval Re-Evaluation Time: 17:57 Comment: Patient is alert and oriented x3. She is medically clear for a MHE. Course/Dx - Diagnoses Provider Diagnoses: Alcohol intoxication Discharge - Sign-Out/Discharge Documenting (check all that apply): Patient Departure - Discharge Plan Condition: Stable Disposition: HOME - Attestation Statements Document Initiated by Scribe: Yes Documenting Scribe: Janie Bond Provider For Whom Scribe is Documenting (Include Credential): Phani Muñiz MD Scribe Attestation: Janie Gardner, scribed for Phani Muñiz MD on 01/03/18 at 0626.
[2018-01-03 06:42] VITALS: BP 145/85
== END 2018-01-03 06:40 | disposition home or self-care (01) ==
LOC: ED 13:59
DX: F10.129 Alcohol abuse with intoxication, unspecified (principal); Z91.018 Allergy to other foods
CPT/HCPCS: 36415; 80053; 80307; 80320; 80329; 81003; 81015; 84443; 84702; 85025; 87086; 99285; A9270-GY; G0480; J1200; J1630; J2060

== ENCOUNTER 2018-08-17 14:36 | Emergency (ER) | payer OTHER, BC ==
--- OUTSIDE RECORDS SUMMARY | 2018-08-17 14:40 | XMS REPORT | Continuity of Care Document ---
:1995 Author Organization [facility] Address [address], [place] [id number] Phone Care Team Providers Name Role Phone Ruth Cline NP Unavailable Unavailable Allergies, Adverse Reactions, Alerts Substance Reaction Status No Known Allergies Active Medications Medication Instructions Dosage Effective Dates Status Comments (start - stop) DANAY (28) 3 take 1 tablet by 1.00 tablet - Active mg-0.02 mg tablet oral route every day Xyzal 5 mg tablet - Active Flonase Allergy - Active Relief 50 mcg/actuation nasal spray,suspension Xanax 0.25 mg - Active tablet Ambien 5 mg - Active tablet hyoscyamine - Active sulfate 0.125 mg tablet gabapentin 100 mg - Active capsule ALBUTEROL INHALER Not Available - Active (unknown strength) ZYRTEC (unknown Not Available - Active strength) DANAY (28) 3 take 1 tablet by 1.00 tablet - No Longer mg-0.02 mg tablet oral route every Active day Problems Condition Effective Dates (start - Clinical Status Comments stop) Encounter for surveillance of contraceptive pills Body mass index (BMI) 31.0-31.9, adult Encounter for surveillance of contraceptive pills Encounter for oth general cnsl and advice on contraception Encounter for initial prescription of contraceptive pills Procedures Procedure Date OFFICE/OUTPATIENT VISIT, EST BLOOD PRESSURE Height/Weight Method Initiation OTHER Medical Services Contraceptive Press Reader.Svc. Other Press Reader.Svc. STI Results Test Name Date and Time Measure Units Reference Range Abnormal Flag Status Comments No information Advance Directives Directive Yes / No Effective Date File Name No information Encounters Encounter Practice Location Reason(s) Diagnoses Date Provider Providers Description For Visit Copied on Encounter OFFICE/OUTPAT [facility] Encounter for Jul- Son Miranda. Referring IENT VISIT, [facility] [place] Control surveillance of [address] Provider: EST [place] (chief contraceptive [address], [place], [place] complaint) [place], [address], [place], [address] [place], [place], [place], [address]. [id number], [place] tel:[phone] [facility] Jul- Son Miranda. [facility] [place] [address] [place], [place], [address], [place], [address], [place], [place], [id number], [place] tel:[phone] [facility] Body mass index Jul- [facility]. [address] Provider: [place] 31.0-31.9, [address], [place] [facility] [place], [place], [facility], [address] for [address]. M, [address] surveillance of tel:[phone], [place], contraceptive [address] [place], [place], [place], [address]. [id number], for oth general tel:[phone] [place] cnsl and advice [id number] tel:[phone] on [phone] contraception [facility] En[facility] for [facility] [place] initial [address]. [address] prescription of [address], [place] contrace[place], [place], [place], [address] [id number] tel:[phone], [place], [address] [place], [id number], [place] tel:[phone] Family History Family Member Diagnosis Age At Onset Sister No history of Myocardial infarction before age 65 Mother No history of Myocardial infarction before age 65 Sister No history of Stroke before age 65 Mother Hypertension 1st degree relative No hx of coronary heart disease (female <65, male <55) Mother No history of Stroke before age 65 1st degree relative No hx of venous thromboembolism Brother No history of Stroke before age 55 Brother No history of Myocardial infarction before age 55 Father No history of Myocardial infarction before age 55 Father No history of Stroke before age 55 Immunizations Vaccine Date Status Comments No information Payers Payer name Insurance type Covered libertarian ID Authorization(s) [facility] [id number] [facility] [id number] Social History Type Description Quantity Date Captured Comments Alcohol Use Details Unknown Caffeine Use Details Unknown Tobacco Use Status Current non-smoker Smoking Status Never smoker Non-Smoking Tobacco : No Details Available : No Details Available 2018 Use Details Sex Female Vital Signs Date / Height Weight BMI Pulse Blood Temperature Respiratory Body Head BMI Pulse Inhaled Time: Rate Pressure Rate Surface Circumference percentile Ox Ox Area 62.00 165.00 30.1 in lbs 8 mm[Hg] 4:25 kg/m PM eter (2) Chief Complaint And Reason For Visit Most recent encounter only, dated '07/20/2018 16:00'. Control ( chief complaint) Reason For Referral Reason For Referral No information Plan Of Treatment Date Type Action Status No information History Of Present Illness Encounter Date Complaint History Of Present Illness No information Functional Status Date Functional Assessment No information Medications Administered Medication Instructions Dosage Effective Dates (start - stop) Status Comments No information Instructions Date Instruction Additional Information No information Assessments Type Assessment Date assessment Encounter for surveillance of contraceptive pills Goals Health Concern Goal Type Priority Status Date No information Medical Equipment Description Device Monroe Device Identifier Effective Dates (start - stop ) Status No information Mental Status Date Cognitive Assessment No information Health Concerns Observation Date No information Concern Status Date No information
[2018-08-17 14:53] VITALS: BP 126/88
--- NOTE | 2018-08-17 15:07 | UC ---
UC General HPI - HPI Summary HPI Summary: 23 yo female presents with multiple complaints. She tells me that over the last 3-4 months she has been feeling more tired than usual, has gained weight without a change in diet or exercise, has been having dry skin and joint aches. She says that she has multiple health issues and sees GI for IBS and mental health for anxiety/depression/OCD related behaviors. She does have a primary doctor, but has not seen them in about a year or two. She called them recently and scheduled an appointment, but they cannot see her for 2 -3 weeks. She is here today requesting labwork, so that it can be completed for her PCP appointment in a few weeks. Regarding her symptoms - they are constant. Nothing makes them better or worse. She has not had any additions or subtractions in medications or supplements around this time frame. She denies fever, SOB, chest pain, abdominal pain, n/v, dysuria, or chance of today. LMP 08/09/18. - History of Current Complaint Chief Complaint: UCGeneralIllness Stated Complaint: TIRED Time Seen by Provider: 08/17/18 15:07 Hx Obtained From: Patient Hx Last Menstrual Period: [id number] Onset/Duration: Gradual Onset Timing: Constant Onset Severity: Moderate Current Severity: Moderate Pain Intensity: 5 - Allergy/Home Medications Allergies/Adverse Reactions: Allergies Allergy/AdvReac Type Severity Reaction Status Date / Time Tree Nuts Allergy Difficulty Verified 08/17/18 14:53 Breathing Home Medications: Home Medications Cholecalciferol (Vitamin D3) [Vitamin D3] 1,000 unit PO BID 08/17/18 [History Confirmed 08/17/18] Hydrocortisone 1% Oint(NF) [Hydrocortisone 1% Oint (NF)] 1 applic TOPICAL BID PRN 08/17/18 [History Confirmed 08/17/18] Hyoscyamine TAB* [Anaspaz 0.125 MG TAB*] 0.125 mg PO Q6H PRN 08/17/18 [History Confirmed 08/17/18] PMH/Surg Hx/FS Hx/Imm Hx - Additional Past Medical History Additional PMH: IBS Insomnia Allergies Psychological History: Anxiety, Depression - Surgical History Surgical History: Yes Surgery Procedure, Year, and Place: adenoidectomy - Family History Known Family History: Negative: Hypertension, Diabetes - Social History Occupation: Employed Full-time Lives: With Family Alcohol Use: Weekly Substance Use Type: None Smoking Status (MU): Never Smoked Tobacco Have You Smoked in the Last Year: No - Immunization History Most Recent Influenza Vaccination: N/A Most Recent Tetanus Shot: N/A Most Recent Pneumonia Vaccination: N/A Review of Systems All Other Systems Reviewed And Are Negative: Yes Constitutional: Positive: Fatigue, Other - Weight gain. Body aches. Skin: Positive: Other - Dry skin Eyes: Positive: Negative ENT: Positive: Negative Respiratory: Positive: Negative Cardiovascular: Positive: Negative Gastrointestinal: Positive: Negative Genitourinary: Positive: Other - Irregular periods Motor: Positive: Negative Neurovascular: Positive: Negative Neurological: Positive: Negative Psychological: Positive: Negative Physical Exam - Summary Physical Exam Summary: GENERAL: NAD. WDWN. No pain distress. SKIN: No rashes, sores, or open wounds. HEENT: Head: AT/NC Eyes: PERRLA. EOM intact. Conjunctiva clear without inflammation or discharge. Ears: Hearing grossly normal. TMs intact, no bulging, erythema, or edema. Nose: Nasal mucosa pink and moist. NTTP maxillary and frontal sinus. Throat: Posterior oropharynx without exudates, erythema, or tonsillar enlargement. Uvula midline. NECK: Supple. Nontender. No lymphadenopathy. CHEST: CTAB. No r/r/w. No accessory muscle use. Breathing comfortably and in no distress. CV: RRR. Without m/r/g. Pulses intact. Brisk cap refill. ABDOMEN: Soft. NTTP. No distention or guarding. No CVA tenderness. Bowel sounds present MSK: FROM and 5/5 strength throughout. No edema. NEURO: Alert. PSYCH: Age appropriate behavior. Triage Information Reviewed: Yes Vital Signs: Initial Vital Signs Temp 98.6 F 08/17/18 14:46 Pulse 91 08/17/18 14:46 Resp 16 08/17/18 14:46 BP 126/88 08/17/18 14:46 Pulse Ox 100 08/17/18 14:46 Vital Signs Reviewed: Yes Course/Dx - Course Course Of Treatment: She admits to researching a lot of her symptoms and is most concerned that she has hypothyroidism, diabetes, and/or PCOS. Her subjective history seems most consistent with hypothyroidism, however objectively I suspect her anxiety is the cause of the majority of her symptoms. Discussed with pt the importance of PCP follow up and evaluation of chronic medical issues/concerns. She voiced understanding and insures me that she will keep her appointment with her PCP in a few weeks. Today will draw for CBC, CMP, TSH, and lyme and have her review these results with her PCP. Encouraged her to f/u with us or to go to the ED if her symptoms change or worsen. - Diagnoses Provider Diagnosis: Fatigue, Joint pain, Anxiety Discharge - Sign-Out/Discharge Documenting (check all that apply): Patient Departure All imaging exams completed and their final reports reviewed: No Studies - Discharge Plan Condition: Stable Disposition: HOME Patient Education Materials: Fatigue (ED) Referrals: No Primary Care Phys,NOPCP [Primary Care Provider] - Additional Instructions: If you develop a fever, shortness of breath, chest pain, new or worsening symptoms - please call your PCP or go to the ED. We have drawn for labwork today to further evaluate your symptoms. Please keep your follow up with your primary doctor for lab results and further evaluation of your symptoms. - Billing Disposition and Condition Condition: STABLE Disposition: Home - Attestation Statements Provider Attestation: I was available for consult. This patient was seen by the JORGE LUIS. The patient was not presented to, seen by, or examined by me. -Paty
== END 2018-08-17 15:43 | disposition home or self-care (01) ==
LOC: UCEAST 14:36
DX: R53.83 Other fatigue (principal); R63.5 Abnormal weight gain; M79.10 Myalgia, unspecified site; F41.9 Anxiety disorder, unspecified; L85.3 Xerosis cutis; N92.6 Irregular menstruation, unspecified; K58.9 Irritable bowel syndrome, unspecified; G47.00 Insomnia, unspecified; J30.9 Allergic rhinitis, unspecified; F32.9 Major depressive disorder, single episode, unspecified; Z91.018 Allergy to other foods
CPT/HCPCS: 99212; G0463